=== PATIENT | female | born 2000 | race Two or more races ===

== ENCOUNTER 2025-06-25 10:03 | Emergency (ER) | payer MEDICAID, OTHER ==
[~2025-06-25] VITALS: Ht 170.2 cm; Wt 75.2 kg
[2025-06-25 11:47] VITALS: BP 110/71; PULSE 60; RESP 18; TEMP 98; O2SAT 97
[2025-06-25] MEDS ORDERED: CEPH500C PO (11:52)
--- NOTE | 2025-06-25 11:53 | ED.PDOC ---
History of Present Illness(SKN HPI Comments The patient presents for evaluation of a recurrent bump under the left arm that has been appearing on and off for a couple of months. The lesion recently became more prominent two weeks before this visit, at which point it spontaneously ruptured on the night of 2025-05-05, releasing blood and some white fluid. The patient reports mild pain when lifting the left arm but no other current symptoms. The patient is concerned about the possibility of infection. This is the first episode with rupture or bleeding. Chief Complaint: Wound Check Time Seen by MD: 10:56 History of Present Illness: Nurses Notes, Medications, Allergies Allergies: Coded Allergies: NO KNOWN ALLERGIES (Unverified , 06/25/25) Information Source: Patient Mode of Arrival: Ambulatory All Other Systems: Reviewed and Negative (per hpi) Physical Exam General Appearance: No Apparent Distress, Normal HEENT: Normal ENT Inspection, Pharynx Normal, TMs Normal Neck: Full Range of Motion, Non-Tender, Normal, Normal Inspection Respiratory: Chest Non-Tender, Lungs Clear, No Accessory Muscle Use, No Res piratory Distress, Normal Breath Sounds Cardiovascular: No Edema, No JVD, No Murmur, No Gallop, Normal Peripheral Pulses, Regular Rate/Rhythm Breast Exam: Deferred Gastrointestinal: No Organomegaly, Non Tender, No Pulsatile Mass, Normal Bowel Sounds, Soft Genitalia: Deferred Pelvic: Deferred Rectal: Deferred Extremities: No calf tenderness, Normal capillary refill, Normal inspection, Normal range of motion, Non-tender, No pedal edema Musculoskeletal : Location: Left Extremity Location: Other (Axilla, ruptured cyst. No surrounding erythema. No pustular discharge. No crepitus to palpation.) Apperance: Normal Neurologic: Alert, mailroom personnel II-XII nml as Tested, No Motor Deficits, Normal Affect, Normal Mood, No Sensory Deficits Cerebellar Function: Normal Reflexes: Normal Skin: Dry, Normal Color, Warm Lymphatic: No Adenopathy Was a procedure done? Was a procedure done?: No Differential Diagnosis (INTG) Differential Diagnosis: Abrasion, Cellulitis X-Ray, Labs, Meds, VS Vital Signs Date Time Temp Pulse Resp B/P (MAP) Pulse Ox O2 Delivery O2 Flow Rate FiO2 06/25/25 11:47 98.0 60 18 110/71 (84) 98 98.0 06/25/25 11:47 60 18 97 Room Air 06/25/25 10:05 98.0 60 18 110/71 97 98.0 X-Ray, Labs, Meds, VS Comment The patient presents with a history of a recurrent left axillary lesion, most consistent with a small abscess or ruptured epidermal inclusion cyst, currently without signs of active infection or cellulitis. On exam, there is no discharge, erythema, streaking, or other features of spreading infection. Mild localized tenderness is present. Differential includes abscess, ruptured cyst, and folliculitis. 1 The current episode likely represents a resolved small abscess or ruptured cyst. No evidence of active infection. The main concern is secondary infection given the open site and recent rupture. - Instructed patient on strict hygiene: keep area clean and dry, wash and pat dry with a washcloth throughout the day - Recommended topical bacitracin or neosporin to the site - Prescribed oral antibiotics for use if signs of infection develop (increased redness, swelling, discharge, tenderness, or fever) - Advised to monitor for worsening symptoms or signs of infection and return if they occur Follow-up/Disposition: The patient was advised to return for care if symptoms worsen or infection develops. Antibiotics prescribed as a precaution for self-initiation if clinical infection arises. Time of 1ST Reevaluation: 11:53 Reevaluation 1ST: Improved Patient Education/Counseling: Diagnosis, Treatment Family Education/Counseling: Diagnosis, Treatment SEPSIS Sepsis Screen Date sepsis recognized/suspect: Jun 25, 2025 Time Sepsis recognized/suspect: 1007 Recent Procedure: No On Antibiotic Therapy: No Respiratory Rate >20: No Heart Rate >90: No Temp<36 C (96.8 F) or >38.3 C: No SBP <90 or MAP <65 mmHG: No New Acute Mental Status Change: No Is the patient on CPAP, BIPAP,: No Vital Signs Date Time Temp Pulse Resp B/P (MAP) Pulse Ox O2 Delivery O2 Flow Rate FiO2 06/25/25 11:47 98.0 60 18 110/71 (84) 98 98.0 06/25/25 11:47 60 18 97 Room Air 06/25/25 10:05 98.0 60 18 110/71 97 98.0 Departure 1 Departure Time of Disposition: 11:53 Impression: Primary Impression: Visit for wound check Disposition: 01 HOME / SELF CARE / HOMELESS Condition: Stable e-Prescriptions Cephalexin Monohydrate (Cephalexin) 500 Mg Cap 1 CAP PO QID for 7 Days, #28 CAP 0 Refills Prov: CHEKO HELLER NP 06/25/25 Discharged With: Self Critical Care Note Critical Care Time?: No Stability Stability form required: No Heart Score Heart Score: Heart Score Response (Comments) Value History N/A 0 EKG N/A 0 Age N/A 0 Risk Factors N/A 0 Troponin N/A 0 Total 0 CHEKO HELLER NP Jun 25, 2025 11:53
== END 2025-06-25 11:55 | disposition home or self-care (01) ==
LOC: ER 10:03
DX: R22.32 Localized swelling, mass and lump, left upper limb (principal); Z48.00 Encounter for change or removal of nonsurgical wound dressing; Z79.899 Other long term (current) drug therapy